=== PATIENT | male | born 2000 | race Two or more races ===

== ENCOUNTER 2024-09-13 13:13 | Inpatient (IN) | payer OTHER ==
[~2024-09-13] VITALS: Ht 167.6 cm; Wt 79.4 kg
[~2024-09-13 13:13] MED LIST: ACYCLOVIR IV 500 MG in IV DEXTROSE 5% 100 ML IV SCH
[2024-09-13] MEDS ORDERED: LORAZEPAM 2 MG/1 ML VIAL ONE (13:17)
[2024-09-13] MEDS ORDERED: diphenhydrAMINE 50 MG/1 ML VIAL ONE (13:34)
[2024-09-13] MEDS ORDERED: HALOPERIDOL LACTATE 5 MG/1 ML VIAL ONE (13:34)
[2024-09-13 13:35] LABS: BASOPHILS # (AUTO) 0.1 K/UL (0.0-0.2); BASOPHILS % (AUTO) 0.3 % (0.0-2.0); EOSINOPHILS # (AUTO) 0.8 K/uL (0.0-0.7); EOSINOPHILS % (AUTO) 3.2 % (0.0-7.0); HEMATOCRIT 59.4 % (36.7-47.1); HEMOGLOBIN 18.7 g/dL (12.5-16.3); LYMPHOCYTES # (AUTO) 7.6 K/uL (0.8-4.8); MEAN CORPUSCULAR HEMOGLOBIN 31.3 uug (23.8-33.4); MEAN CORPUSCULAR HGB CONC 31 g/dL (32.5-36.3); MEAN CORPUSCULAR VOLUME 99.9 fL (73.0-96.2); MONOCYTES % (AUTO) 7.8 % (0.0-11.0); NEUTROPHILS # (AUTO) 14.9 K/uL (1.8-8.9); NEUTROPHILS % (AUTO) 58.7 % (38.5-71.5); PLATELET COUNT (AUTO) 453 K/uL (152-348); RED BLOOD CELL COUNT(AUTO) 5.95 MIL/uL (4.06-5.63); RED CELL DISTRIBUTION WIDTH 14.2 % (12.1-16.2); WHITE BLOOD COUNT (AUTO) 25.4 K/uL (3.6-10.2)
[2024-09-13 13:38] LABS: DIFFERENTIAL COMMENT 1
[2024-09-13] MEDS: LORAZEPAM 2 MG/1 ML VIAL IM ONE (13:43)
[2024-09-13 13:46] LABS: CALCIUM 10.7 mg/dL (8.5-10.1); CARBON DIOXIDE 12 mmol/L (21-32); CHLORIDE 108 mmol/L (98-107); CREATININE 1.3 mg/dL (0.6-1.3); GLUCOSE 174 mg/dL (74-106); POTASSIUM 5.3 mmol/L (3.5-5.1); SODIUM SERUM 150 mmol/L (136-145); UREA NITROGEN, BLOOD 12 mg/dL (7-18)
[2024-09-13] MEDS: diphenhydrAMINE 50 MG/1 ML VIAL IV ONE (13:48)
[2024-09-13] MEDS: HALOPERIDOL LACTATE 5 MG/1 ML VIAL IV ONE (13:48)
[2024-09-13 13:51] LABS: ETHANOL < 3 MG/DL (0-10)
[2024-09-13 13:56] LABS: ACETAMINOPHEN < 2.0 ug/mL (10-30); ALANINE AMINOTRANSFERASE 71 U/L (16-63); ALBUMIN 4.8 g/dL (3.4-5.0); ALKALINE PHOSPHATASE 97 U/L (50-136); ASPARTATE AMINOTRANSFERASE 43 U/L (15-37); BILIRUBIN,DIRECT 0.1 mg/dL (0.0-0.2); BILIRUBIN,TOTAL 0.4 mg/dL (0.2-1.0); TOTAL PROTEIN, SERUM 9.6 g/dL (6.4-8.2)
[2024-09-13 14:25] LABS: AMMONIA 291 umol/L (11-32)
[2024-09-13] MEDS ORDERED: CEFTRIAXONE /D5W 50ML IVPB **ER PYXIS IV ONE (14:35)
[2024-09-13 14:42] LABS: *BILIRUBIN,URIN NEGATIVE (NEGATIVE); *BLOOD, URINE 3+ (NEGATIVE); *CLARITY,URINE CLEAR (CLEAR); *COLOR,URINE YELLOW (YELLOW); *KETONES,URINE NEGATIVE (NEGATIVE); *PROTEIN,URINE 2+ (NEGATIVE); *UROBILINOGEN,URINE 0.2 E.U./dl (NORMAL); LEUKOCYTE ESTERASE ,URINE NEGATIVE (NEGATIVE); NITRITE, URINE NEGATIVE (NEGATIVE); UGLUCOSE NEGATIVE (NEGATIVE)
[2024-09-13] MEDS: CEFTRIAXONE 2 G in IV DEXTROSE 5% 100 ML IV ONE (14:49)
[2024-09-13] MEDS: IV NORMAL SALINE 1000 ML BAG IV ONE ×2 (14:49→19:07)
[2024-09-13 14:56] LABS: *AMPHETAMINE, URINE NEGATIVE (NEGATIVE); *BARBITURATE, URINE NEGATIVE (NEGATIVE); *BENZODIAZEPINE, URINE NEGATIVE (NEGATIVE); *CANNABINOID, URINE POSITIVE (NEGATIVE); *COCCAINE, URINE NEGATIVE (NEGATIVE); *OPIATE, URINE NEGATIVE (NEGATIVE); *PHENCYCLIDINE SCREEN,URINE NEGATIVE (NEGATIVE); FENTANYL, URINE NEGATIVE (NEGATIVE)
[2024-09-13 15:06] LABS: BACTERIA,URINE FEW /HPF (NONE SEEN); WBC,URINE 0-3 /HPF (0-3)
[2024-09-13 15:07] LABS: SQUAMOUS EPITHELIAL CELL,UR FEW /HPF (NONE SEEN)
[2024-09-13 15:13] LABS: LACTIC ACID 8.8 mmol/L (0.4-2.0)
[2024-09-13 16:08] LABS: ABG BASE EXCESS -8.5 mmol/L (-2.0-3.0); ABG PH 7.233 (7.350-7.450); ABG PO2 < 40.5 mmHg (83.0-108.0); ABG SITE UVL; ABG TOTAL HEMOGLOBIN 16.1 G/dL (13.5-17.5); AaDO2 39.3 mmHg; COHb 0.8 % (0.5-1.5); MetHb 0.3 % (0.0-1.5); O2Hb 42.4 % (94.0-98.0)
[2024-09-13] MEDS ORDERED: ACYCLOVIR 500 MG VIAL IV ONE (18:54)
[2024-09-13] MEDS: ACYCLOVIR IV 500 MG in IV DEXTROSE 5% 100 ML IV SCH (19:07)
[2024-09-13 20:02] LABS: CSF GLUCOSE 92 mg/dL (40-70); CSF PROTEIN 40 mg/dL (15-45)
[2024-09-13 20:16] LABS: CSF APPEARANCE CLEAR (CLEAR); CSF COLOR COLORLESS (COLORLESS); CSF WHITE BLOOD CELL COUNT 0.55 /cumm (0-5)
[2024-09-13 21:21] VITALS: BP 128/65; TEMP 100; O2SAT 94
[2024-09-13] MEDS ORDERED: ONDANSETRON 4 MG/2 ML VIAL IV PRN (21:45)
[2024-09-13] MEDS ORDERED: ENOXAPARIN SODIUM 40 MG/0.4 ML DISP.SYRIN SQ SCH (21:45)
[2024-09-13 22:05] LABS: CALCIUM 8.2 mg/dL (8.5-10.1); CREATININE 1.3 mg/dL (0.6-1.3); POTASSIUM 4.2 mmol/L (3.5-5.1)
[2024-09-13] MEDS: ENOXAPARIN SODIUM 40 MG/0.4 ML DISP.SYRIN SQ SCH (22:13)
[2024-09-13] MEDS: IV NS 1000 ML 1,000 ML IV PRN (22:18)
[2024-09-14] VITALS: BP 110/65; TEMP 99.3; O2SAT 94
[2024-09-14] MEDS: LORAZEPAM 0.5 MG TABLET PO ONE (01:27)
[2024-09-14] MEDS ORDERED: ACYCLOVIR 500 MG VIAL IV ONE (02:44)
[2024-09-14] MEDS: ACYCLOVIR IV 500 MG in IV DEXTROSE 5% 100 ML IV SCH (03:23)
[2024-09-14 04:00] VITALS: BP 108/67; TEMP 98; O2SAT 96
[2024-09-14 06:50] LABS: BASOPHILS % (AUTO) 0.1 % (0.0-2.0); EOSINOPHILS # (AUTO) 0.1 K/uL (0.0-0.7); EOSINOPHILS % (AUTO) 0.4 % (0.0-7.0); HEMATOCRIT 42.1 % (36.7-47.1); HEMOGLOBIN 14.2 g/dL (12.5-16.3); LYMPHOCYTES % (AUTO) 20.4 % (20.5-51.5); MEAN CORPUSCULAR HEMOGLOBIN 31.7 uug (23.8-33.4); MEAN CORPUSCULAR HGB CONC 34 g/dL (32.5-36.3); MEAN CORPUSCULAR VOLUME 93.9 fL (73.0-96.2); MONOCYTES # (AUTO) 1.2 K/uL (0.1-1.30); MONOCYTES % (AUTO) 8.4 % (0.0-11.0); NEUTROPHILS # (AUTO) 10.3 K/uL (1.8-8.9); NEUTROPHILS % (AUTO) 70.7 % (38.5-71.5); PLATELET COUNT (AUTO) 303 K/uL (152-348); RED BLOOD CELL COUNT(AUTO) 4.48 MIL/uL (4.06-5.63); RED CELL DISTRIBUTION WIDTH 13.6 % (12.1-16.2); WHITE BLOOD COUNT (AUTO) 14.6 K/uL (3.6-10.2)
[2024-09-14 07:13] LABS: DIFFERENTIAL COMMENT 1
[2024-09-14 07:30] LABS: CREATININE 1.3 mg/dL (0.6-1.3); MAGNESIUM 2.1 mg/dL (1.8-2.4); PHOSPHOROUS 3.2 mg/dL (2.5-4.9); POTASSIUM 3.5 mmol/L (3.5-5.1)
[2024-09-14 07:40] VITALS: BP 129/74; TEMP 98.3; O2SAT 98
[2024-09-14] MEDS: CEFTRIAXONE 2 G in IV DEXTROSE 5% 100 ML IV SCH (08:42)
[2024-09-14] MEDS ORDERED: CEFTRIAXONE 2 G in IV DEXTROSE 5% 100 ML IV SCH ×2 (09:00→15:00)
[2024-09-14] MEDS ORDERED: CEFTRIAXONE 2 G VIAL IM SCH (09:00)
[2024-09-14] MEDS ORDERED: ERGO500040 PO (09:53)
[2024-09-14] MEDS: ACYCLOVIR IV SCH (10:47)
[2024-09-14] MEDS: DEXTROSE 5% IV SCH (10:47)
[2024-09-14] MEDS ORDERED: ACYCLOVIR IV 500 MG in IV DEXTROSE 5% 100 ML IV SCH (11:00)
[2024-09-14 11:43] VITALS: BP 142/70; TEMP 97.7; O2SAT 96
[2024-09-14] MEDS ORDERED: levETIRAcetam 500 MG/5 ML LIQUID UDC NG SCH (12:30)
[2024-09-14] MEDS: levETIRAcetam 500 MG TABLET PO ONE (12:54)
[2024-09-14 13:31] LABS: THYROID STIMULATING HORMONE 1.562 mIU/mL (0.358-3.740)
[2024-09-14] MEDS: ERGOCALCIFEROL 50,000 UNIT CAPSULE PO SCH (13:47)
[2024-09-14 15:59] VITALS: BP 122/68; TEMP 98.2; O2SAT 97
[2024-09-14 18:38] LABS: *BILIRUBIN,URIN NEGATIVE (NEGATIVE); *BLOOD, URINE NEGATIVE (NEGATIVE); *CLARITY,URINE CLEAR (CLEAR); *COLOR,URINE YELLOW (YELLOW); *KETONES,URINE NEGATIVE (NEGATIVE); *PROTEIN,URINE NEGATIVE (NEGATIVE); *UROBILINOGEN,URINE 0.2 E.U./dl (NORMAL); LEUKOCYTE ESTERASE ,URINE NEGATIVE (NEGATIVE); NITRITE, URINE NEGATIVE (NEGATIVE); UGLUCOSE NEGATIVE (NEGATIVE)
[2024-09-14 18:42] LABS: *CREATININE,URINE 34.3 mg/dL (30-125); *SODIUM RNDM,URINE 71 mmol/L (40-220); *URINE TOTAL PROTEIN RANDOM < 6.0 mg/dL (<150/24HR)
[2024-09-14 19:00] VITALS: BP 134/87; TEMP 99.1; O2SAT 96
[2024-09-14] MEDS: levETIRAcetam 500 MG TABLET PO SCH (21:01)
[2024-09-14] MEDS: ACETAMINOPHEN 325 MG TABLET PO PRN (21:01)
[2024-09-15] VITALS: BP 116/66; TEMP 97.6; O2SAT 95
[2024-09-15 06:00] VITALS: BP 134/72; TEMP 97.8; O2SAT 93
[2024-09-15 07:03] LABS: BASOPHILS % (AUTO) 0.5 % (0.0-2.0); EOSINOPHILS # (AUTO) 0.1 K/uL (0.0-0.7); EOSINOPHILS % (AUTO) 1.5 % (0.0-7.0); HEMATOCRIT 42.6 % (36.7-47.1); HEMOGLOBIN 14.4 g/dL (12.5-16.3); LYMPHOCYTES # (AUTO) 3.4 K/uL (0.8-4.8); LYMPHOCYTES % (AUTO) 35.7 % (20.5-51.5); MEAN CORPUSCULAR HEMOGLOBIN 31.4 uug (23.8-33.4); MEAN CORPUSCULAR HGB CONC 34 g/dL (32.5-36.3); MEAN CORPUSCULAR VOLUME 93.2 fL (73.0-96.2); MONOCYTES # (AUTO) 0.8 K/uL (0.1-1.30); MONOCYTES % (AUTO) 8.9 % (0.0-11.0); NEUTROPHILS # (AUTO) 5.1 K/uL (1.8-8.9); NEUTROPHILS % (AUTO) 53.4 % (38.5-71.5); PLATELET COUNT (AUTO) 319 K/uL (152-348); RED BLOOD CELL COUNT(AUTO) 4.58 MIL/uL (4.06-5.63); RED CELL DISTRIBUTION WIDTH 13.4 % (12.1-16.2); WHITE BLOOD COUNT (AUTO) 9.5 K/uL (3.6-10.2)
[2024-09-15 07:07] LABS: DIFFERENTIAL COMMENT 1
[2024-09-15 07:34] VITALS: BP 144/65; TEMP 98.2; O2SAT 94
[2024-09-15 07:35] LABS: CALCIUM 8.8 mg/dL (8.5-10.1); MAGNESIUM 1.9 mg/dL (1.8-2.4); PHOSPHOROUS 2.9 mg/dL (2.5-4.9); POTASSIUM 3.7 mmol/L (3.5-5.1)
[2024-09-15 11:05] VITALS: BP 144/83; TEMP 98.6; O2SAT 94
[2024-09-15 15:03] VITALS: BP 152/98; TEMP 98.2; O2SAT 94
[2024-09-15 19:00] VITALS: BP 135/70; TEMP 99.2; O2SAT 97
[2024-09-15 22:08] LABS: *HSV 1/2 PCR 1DNA CSF Negative (Negative); *HSV 1/2 PCR 2DNA CSF Negative (Negative)
[2024-09-16] VITALS: BP 141/72; TEMP 97.8; O2SAT 96
[2024-09-16 04:00] VITALS: BP 104/59; TEMP 97.7; O2SAT 95
[2024-09-16 07:35] VITALS: BP 128/71; TEMP 98; O2SAT 94
[2024-09-16 07:52] LABS: BASOPHILS # (AUTO) 0.1 K/UL (0.0-0.2); BASOPHILS % (AUTO) 0.6 % (0.0-2.0); EOSINOPHILS # (AUTO) 0.1 K/uL (0.0-0.7); EOSINOPHILS % (AUTO) 1.2 % (0.0-7.0); HEMATOCRIT 42.1 % (36.7-47.1); HEMOGLOBIN 14.5 g/dL (12.5-16.3); LYMPHOCYTES # (AUTO) 3.6 K/uL (0.8-4.8); MEAN CORPUSCULAR HEMOGLOBIN 32.2 uug (23.8-33.4); MEAN CORPUSCULAR HGB CONC 34 g/dL (32.5-36.3); MEAN CORPUSCULAR VOLUME 93.5 fL (73.0-96.2); MONOCYTES % (AUTO) 9.6 % (0.0-11.0); NEUTROPHILS # (AUTO) 5.6 K/uL (1.8-8.9); NEUTROPHILS % (AUTO) 53.6 % (38.5-71.5); PLATELET COUNT (AUTO) 335 K/uL (152-348); RED CELL DISTRIBUTION WIDTH 13.2 % (12.1-16.2); WHITE BLOOD COUNT (AUTO) 10.3 K/uL (3.6-10.2)
[2024-09-16 07:59] LABS: DIFFERENTIAL COMMENT 1
[2024-09-16 08:15] LABS: ALBUMIN 3.6 g/dL (3.4-5.0); BILIRUBIN,TOTAL 0.4 mg/dL (0.2-1.0); CALCIUM 9.2 mg/dL (8.5-10.1); PHOSPHOROUS 3.5 mg/dL (2.5-4.9); POTASSIUM 3.7 mmol/L (3.5-5.1); TOTAL PROTEIN, SERUM 7.1 g/dL (6.4-8.2)
[2024-09-16 11:43] VITALS: BP 128/94; TEMP 98.6; O2SAT 94
[2024-09-16 13:07] LABS: CRYPTOCOCCUS AG CSF Negative (Negative)
[2024-09-16 16:34] VITALS: BP 139/96; TEMP 98.5; O2SAT 96
[2024-09-16 19:37] VITALS: BP 147/85; TEMP 99.1; O2SAT 96
[2024-09-17 05:27] VITALS: BP 127/85; TEMP 97.8; O2SAT 97
[2024-09-17 07:28] LABS: HIV-1 p24 ANTIGEN NON REACTIVE (NONREACTIVE); HIV-1/2 ANTIBODY NON REACTIVE (NONREACTIVE)
[2024-09-17 11:53] VITALS: BP 141/86; TEMP 98.5; O2SAT 97
[2024-09-17 15:41] VITALS: BP 128/91; TEMP 98.1; O2SAT 96
[2024-09-17 20:05] VITALS: BP 146/96; TEMP 97.9; O2SAT 95
[2024-09-18 05:32] VITALS: BP 126/85; TEMP 97.6; O2SAT 97
[2024-09-18 06:10] LABS: HEPATITIS B CORE AB, TOTAL Negative (Negative); HEPATITIS B SURFACE AG Negative (Negative); HEPATITIS C VIRUS ANTIBODY Non Reactive (Non Reactive)
[2024-09-18 06:52] LABS: BASOPHILS % (AUTO) 0.7 % (0.0-2.0); EOSINOPHILS # (AUTO) 0.3 K/uL (0.0-0.7); EOSINOPHILS % (AUTO) 4.2 % (0.0-7.0); HEMATOCRIT 45.3 % (36.7-47.1); HEMOGLOBIN 15.6 g/dL (12.5-16.3); LYMPHOCYTES # (AUTO) 2.5 K/uL (0.8-4.8); LYMPHOCYTES % (AUTO) 35.8 % (20.5-51.5); MEAN CORPUSCULAR HGB CONC 34 g/dL (32.5-36.3); MONOCYTES # (AUTO) 0.7 K/uL (0.1-1.30); MONOCYTES % (AUTO) 9.8 % (0.0-11.0); NEUTROPHILS # (AUTO) 3.4 K/uL (1.8-8.9); NEUTROPHILS % (AUTO) 49.5 % (38.5-71.5); PLATELET COUNT (AUTO) 369 K/uL (152-348); RED BLOOD CELL COUNT(AUTO) 4.88 MIL/uL (4.06-5.63); RED CELL DISTRIBUTION WIDTH 12.9 % (12.1-16.2); WHITE BLOOD COUNT (AUTO) 6.9 K/uL (3.6-10.2)
[2024-09-18 07:09] LABS: ALBUMIN 3.6 g/dL (3.4-5.0); BILIRUBIN,TOTAL 0.5 mg/dL (0.2-1.0); CALCIUM 9.1 mg/dL (8.5-10.1); PHOSPHOROUS 4.1 mg/dL (2.5-4.9); POTASSIUM 3.9 mmol/L (3.5-5.1); TOTAL PROTEIN, SERUM 7.3 g/dL (6.4-8.2)
[2024-09-18 07:15] LABS: DIFFERENTIAL COMMENT 1
[2024-09-18 08:00] VITALS: BP 140/97; TEMP 98; O2SAT 98
[2024-09-18] MEDS: IV 1/2NS 1000 ML 1,000 ML IV PRN (08:42)
[2024-09-18 12:00] VITALS: BP 129/90; TEMP 98; O2SAT 97
[2024-09-18 16:00] VITALS: BP 129/85; TEMP 98.5; O2SAT 98
[2024-09-18] MEDS ORDERED: LEVE500T9 PO (17:01)
== END 2024-09-18 19:45 | disposition home or self-care (01) | DRG 871 ==
LOC: ER 13:14 → TELE3 20:22 → MEDSURG3 09-16 10:07
PROVIDERS: ADMIT Nurse Practitioner Acute Care; ATTEND Nurse Practitioner Acute Care
PROC: 009U3ZX Drainage of Spinal Canal, Percutaneous Approach, Diagnostic (ICD-10-PCS; principal; 2024-09-13)
DX: A41.9 Sepsis, unspecified organism (principal); G92.8 Other toxic encephalopathy; J96.01 Acute respiratory failure with hypoxia; E87.0 Hyperosmolality and hypernatremia; E87.21 Acute metabolic acidosis; M62.82 Rhabdomyolysis; E72.20 Disorder of urea cycle metabolism, unspecified; E87.20 Acidosis, unspecified; E86.0 Dehydration; E66.9 Obesity, unspecified; Z68.28 Body mass index [BMI] 28.0-28.9, adult; K76.0 Fatty (change of) liver, not elsewhere classified; E87.5 Hyperkalemia; F41.9 Anxiety disorder, unspecified; F12.90 Cannabis use, unspecified, uncomplicated; D75.1 Secondary polycythemia; E53.8 Deficiency of other specified B group vitamins; M54.2 Cervicalgia; H53.2 Diplopia; Z78.1 Physical restraint status; S01.21XA Laceration without foreign body of nose, initial encounter; X58.XXXA Exposure to other specified factors, initial encounter; Y93.E1 Activity, personal bathing and showering; Y92.012 Bathroom of single-family (private) house as the place of occurrence of the external cause; E83.52 Hypercalcemia
CPT/HCPCS: 36415; 36600; 70450; 71045; 72125; 76770; 82803; 83605; 83735; 83921; 84100; 84157; 84300; 84443; 84484; 85025; 85730; 86480; 86704; 86803; 87040; 87340; 87806; 89051; C1758; G0378; G0480; J0133; J0696; J1200; J1630; J1650; J2060; J7040; J7050

== ENCOUNTER 2024-11-02 10:49 | Emergency (ER) | payer OTHER ==
[~2024-11-02] VITALS: Ht 165.1 cm; Wt 77.1 kg
[~2024-11-02 10:49] MED LIST changes: -ACYCLOVIR IV 500 MG in IV DEXTROSE 5% 100 ML IV SCH; +LEVE500T9 PO
[2024-11-02] MEDS ORDERED: CALC-895 PO (11:14)
[2024-11-02] MEDS ORDERED: GEMF600T90 PO (11:14)
[2024-11-02 11:18] LABS: BASOPHILS % (AUTO) 0.5 % (0.0-2.0); EOSINOPHILS # (AUTO) 0.1 K/uL (0.0-0.7); EOSINOPHILS % (AUTO) 1.5 % (0.0-7.0); HEMATOCRIT 44.2 % (36.7-47.1); HEMOGLOBIN 15.3 g/dL (12.5-16.3); LYMPHOCYTES # (AUTO) 2.8 K/uL (0.8-4.8); LYMPHOCYTES % (AUTO) 37.2 % (20.5-51.5); MEAN CORPUSCULAR HEMOGLOBIN 31.9 uug (23.8-33.4); MEAN CORPUSCULAR HGB CONC 35 g/dL (32.5-36.3); MEAN CORPUSCULAR VOLUME 91.9 fL (73.0-96.2); MONOCYTES # (AUTO) 0.6 K/uL (0.1-1.30); MONOCYTES % (AUTO) 8.3 % (0.0-11.0); NEUTROPHILS % (AUTO) 52.5 % (38.5-71.5); PLATELET COUNT (AUTO) 370 K/uL (152-348); RED CELL DISTRIBUTION WIDTH 13.2 % (12.1-16.2); WHITE BLOOD COUNT (AUTO) 7.7 K/uL (3.6-10.2)
[2024-11-02 11:20] LABS: DIFFERENTIAL COMMENT 1
[2024-11-02 11:31] LABS: ETHANOL < 3 MG/DL (0-10)
[2024-11-02 11:35] LABS: *AMPHETAMINE, URINE NEGATIVE (NEGATIVE); *BARBITURATE, URINE NEGATIVE (NEGATIVE); *BENZODIAZEPINE, URINE NEGATIVE (NEGATIVE); *CANNABINOID, URINE POSITIVE (NEGATIVE); *COCCAINE, URINE NEGATIVE (NEGATIVE); *OPIATE, URINE NEGATIVE (NEGATIVE); *PHENCYCLIDINE SCREEN,URINE NEGATIVE (NEGATIVE); FENTANYL, URINE NEGATIVE (NEGATIVE)
[2024-11-02 11:40] LABS: ALANINE AMINOTRANSFERASE 47 U/L (16-63); ALBUMIN 4.3 g/dL (3.4-5.0); ALKALINE PHOSPHATASE 79 U/L (50-136); ASPARTATE AMINOTRANSFERASE 18 U/L (15-37); BILIRUBIN,DIRECT 0.1 mg/dL (0.0-0.2); BILIRUBIN,TOTAL 0.4 mg/dL (0.2-1.0); CALCIUM 9.5 mg/dL (8.5-10.1); CARBON DIOXIDE 28 mmol/L (21-32); CHLORIDE 103 mmol/L (98-107); CREATININE 1.1 mg/dL (0.6-1.3); GLUCOSE 111 mg/dL (74-106); POTASSIUM 3.7 mmol/L (3.5-5.1); SODIUM SERUM 143 mmol/L (136-145); TOTAL PROTEIN, SERUM 8.1 g/dL (6.4-8.2); UREA NITROGEN, BLOOD 12 mg/dL (7-18)
[2024-11-02 11:43] LABS: *BILIRUBIN,URIN NEGATIVE (NEGATIVE); *BLOOD, URINE TRACE (NEGATIVE); *CLARITY,URINE CLEAR (CLEAR); *COLOR,URINE YELLOW (YELLOW); *KETONES,URINE NEGATIVE (NEGATIVE); *PROTEIN,URINE NEGATIVE (NEGATIVE); *UROBILINOGEN,URINE 0.2 E.U./dl (NORMAL); LEUKOCYTE ESTERASE ,URINE NEGATIVE (NEGATIVE); NITRITE, URINE NEGATIVE (NEGATIVE); UGLUCOSE NEGATIVE (NEGATIVE)
[2024-11-02 11:44] LABS: ACETAMINOPHEN < 10.0 ug/mL (10-30); NT-PRO BNP 7 pg/mL (0-125)
[2024-11-02 11:44] LABS: BACTERIA,URINE FEW /HPF (NONE SEEN); WBC,URINE 0-3 /HPF (0-3)
[2024-11-02 12:12] VITALS: BP 132/84; O2SAT 98
[2024-11-03] MEDS ORDERED: ERGO500040 PO (12:36)
== END 2024-11-02 12:13 | disposition home or self-care (01) ==
LOC: ER 10:49
DX: R00.2 Palpitations (principal); E78.5 Hyperlipidemia, unspecified
CPT/HCPCS: 36415; 84484; 85025; 85730; A4606; A4663; G0480

== ENCOUNTER 2024-11-02 13:36 | Inpatient (IN) | payer OTHER ==
[~2024-11-02] VITALS: Ht 165.1 cm; Wt 72.6 kg
[~2024-11-02 13:36] MED LIST changes: +CALC-895 PO; +GEMF600T90 PO
[2024-11-02 14:13] LABS: BASOPHILS % (AUTO) 0.3 % (0.0-2.0); EOSINOPHILS # (AUTO) 0.1 K/uL (0.0-0.7); EOSINOPHILS % (AUTO) 0.9 % (0.0-7.0); HEMATOCRIT 45.7 % (36.7-47.1); HEMOGLOBIN 15.7 g/dL (12.5-16.3); LYMPHOCYTES # (AUTO) 2.4 K/uL (0.8-4.8); LYMPHOCYTES % (AUTO) 25.4 % (20.5-51.5); MEAN CORPUSCULAR HEMOGLOBIN 31.8 uug (23.8-33.4); MEAN CORPUSCULAR HGB CONC 34 g/dL (32.5-36.3); MEAN CORPUSCULAR VOLUME 92.4 fL (73.0-96.2); MONOCYTES # (AUTO) 0.5 K/uL (0.1-1.30); MONOCYTES % (AUTO) 5.3 % (0.0-11.0); NEUTROPHILS # (AUTO) 6.4 K/uL (1.8-8.9); NEUTROPHILS % (AUTO) 68.1 % (38.5-71.5); PLATELET COUNT (AUTO) 368 K/uL (152-348); RED BLOOD CELL COUNT(AUTO) 4.94 MIL/uL (4.06-5.63); WHITE BLOOD COUNT (AUTO) 9.4 K/uL (3.6-10.2)
[2024-11-02 14:20] LABS: DIFFERENTIAL COMMENT 1
[2024-11-02 14:24] LABS: AMMONIA 39 umol/L (11-32)
[2024-11-02 14:34] LABS: CALCIUM 10.1 mg/dL (8.5-10.1); CARBON DIOXIDE 24 mmol/L (21-32); CHLORIDE 104 mmol/L (98-107); CREATININE 1.2 mg/dL (0.6-1.3); GLUCOSE 105 mg/dL (74-106); POTASSIUM 3.9 mmol/L (3.5-5.1); SODIUM SERUM 143 mmol/L (136-145); UREA NITROGEN, BLOOD 11 mg/dL (7-18)
[2024-11-02 14:36] LABS: ETHANOL < 3 MG/DL (0-10)
[2024-11-02 14:38] LABS: ACETAMINOPHEN < 10.0 ug/mL (10-30); ALANINE AMINOTRANSFERASE 47 U/L (16-63); ALBUMIN 4.1 g/dL (3.4-5.0); ALKALINE PHOSPHATASE 70 U/L (50-136); ASPARTATE AMINOTRANSFERASE 26 U/L (15-37); BILIRUBIN,DIRECT 0.1 mg/dL (0.0-0.2); BILIRUBIN,TOTAL 0.3 mg/dL (0.2-1.0); TOTAL PROTEIN, SERUM 8.1 g/dL (6.4-8.2)
[2024-11-02] MEDS ORDERED: DEXAMETHASONE SOD PHOSPHATE 10 MG INJ ONE (14:57)
[2024-11-02] MEDS ORDERED: levETIRAcetam 500 MG/5 ML VIAL IV ONE ×2 (14:58→22:37)
[2024-11-02] MEDS: levETIRAcetam IV 1,000 MG in IV DEXTROSE 5% 100 ML IV ONE (15:11)
[2024-11-02] MEDS: DEXAMETHASONE SOD PHOSPHATE 4 MG INJ IV ONE (15:11)
[2024-11-02] MEDS ORDERED: MAGNESIUM HYDROXIDE 30 ML LIQUID UDC PO PRN (16:00)
[2024-11-02] MEDS ORDERED: REMEDY ESSENTIAL ZINC PASTE 113 GM TP PRN (16:00)
[2024-11-02] MEDS ORDERED: ONDANSETRON 4 MG/2 ML VIAL IV PRN (16:00)
[2024-11-02] MEDS ORDERED: ACETAMINOPHEN 325 MG TABLET PO PRN (16:00)
[2024-11-02] MEDS ORDERED: MORPHINE SULFATE 4 MG/1 ML DISP.SYRIN ONE (17:22)
[2024-11-02] MEDS: ONDANSETRON 4 MG/2 ML VIAL IV ONE (17:29)
[2024-11-02] MEDS: MORPHINE SULFATE 4 MG/1 ML DISP.SYRIN IV ONE (17:29)
[2024-11-02 18:00] LABS: *AMPHETAMINE, URINE NEGATIVE (NEGATIVE); *BARBITURATE, URINE NEGATIVE (NEGATIVE); *BENZODIAZEPINE, URINE NEGATIVE (NEGATIVE); *CANNABINOID, URINE POSITIVE (NEGATIVE); *COCCAINE, URINE NEGATIVE (NEGATIVE); *OPIATE, URINE NEGATIVE (NEGATIVE); *PHENCYCLIDINE SCREEN,URINE NEGATIVE (NEGATIVE); FENTANYL, URINE NEGATIVE (NEGATIVE)
[2024-11-02 18:01] LABS: *BILIRUBIN,URIN NEGATIVE (NEGATIVE); *CLARITY,URINE CLEAR (CLEAR); *COLOR,URINE YELLOW (YELLOW); *KETONES,URINE NEGATIVE (NEGATIVE); *PROTEIN,URINE 1+ (NEGATIVE); *UROBILINOGEN,URINE 0.2 E.U./dl (NORMAL); LEUKOCYTE ESTERASE ,URINE NEGATIVE (NEGATIVE); NITRITE, URINE NEGATIVE (NEGATIVE); UGLUCOSE NEGATIVE (NEGATIVE)
[2024-11-02 18:03] LABS: *BLOOD, URINE NEGATIVE (NEGATIVE); RBC,URINE 0-3 /HPF (0-3); WBC,URINE 0-3 /HPF (0-3)
[2024-11-02 19:40] VITALS: BP 135/77; TEMP 98.5; O2SAT 97
[2024-11-02] MEDS: levETIRAcetam IV 1,000 MG in IV DEXTROSE 5% 100 ML IV SCH (23:01)
[2024-11-03 00:20] VITALS: BP 116/70; TEMP 98.1; O2SAT 97
[2024-11-03 04:30] VITALS: BP 133/81; TEMP 98; O2SAT 96
[2024-11-03 07:22] LABS: HEMATOCRIT 44.8 % (36.7-47.1); HEMOGLOBIN 15.4 g/dL (12.5-16.3); LYMPHOCYTES # (AUTO) 1.5 K/uL (0.8-4.8); LYMPHOCYTES % (AUTO) 10.5 % (20.5-51.5); MEAN CORPUSCULAR HEMOGLOBIN 31.7 uug (23.8-33.4); MEAN CORPUSCULAR HGB CONC 34 g/dL (32.5-36.3); MEAN CORPUSCULAR VOLUME 92.2 fL (73.0-96.2); MONOCYTES # (AUTO) 0.6 K/uL (0.1-1.30); MONOCYTES % (AUTO) 3.9 % (0.0-11.0); NEUTROPHILS # (AUTO) 12.6 K/uL (1.8-8.9); NEUTROPHILS % (AUTO) 85.6 % (38.5-71.5); PLATELET COUNT (AUTO) 389 K/uL (152-348); RED BLOOD CELL COUNT(AUTO) 4.86 MIL/uL (4.06-5.63); RED CELL DISTRIBUTION WIDTH 13.4 % (12.1-16.2); WHITE BLOOD COUNT (AUTO) 14.7 K/uL (3.6-10.2)
[2024-11-03 07:42] VITALS: BP 106/68; TEMP 98.1; O2SAT 97
[2024-11-03 07:51] LABS: CALCIUM 9.2 mg/dL (8.5-10.1); CREATININE 1.1 mg/dL (0.6-1.3); MAGNESIUM 2.1 mg/dL (1.8-2.4); PHOSPHOROUS 3.9 mg/dL (2.5-4.9)
[2024-11-03 08:28] LABS: DIFFERENTIAL COMMENT 1
[2024-11-03] MEDS: CALCIUM CARB/VITAMIN D 600-400 MG TABLET PO SCH (09:00)
[2024-11-03] MEDS: GEMFIBROZIL 600 MG TABLET PO SCH (09:00)
[2024-11-03 11:07] VITALS: BP 129/72; TEMP 98.4; O2SAT 96
[2024-11-03] MEDS ORDERED: ERGO500040 PO (12:36)
[2024-11-03 15:35] VITALS: BP 142/83; TEMP 98.4; O2SAT 95
[2024-11-03 20:34] VITALS: BP 120/73; TEMP 98.1; O2SAT 97
[2024-11-03] MEDS: levETIRAcetam 500 MG TABLET PO SCH (21:03)
[2024-11-04] VITALS: BP 103/70; TEMP 97.4; O2SAT 95
[2024-11-04 04:11] VITALS: BP 111/71; TEMP 97.5; O2SAT 95
[2024-11-04 06:58] LABS: BASOPHILS % (AUTO) 0.1 % (0.0-2.0); EOSINOPHILS % (AUTO) 0.1 % (0.0-7.0); HEMATOCRIT 44.2 % (36.7-47.1); HEMOGLOBIN 15.2 g/dL (12.5-16.3); LYMPHOCYTES # (AUTO) 4.2 K/uL (0.8-4.8); LYMPHOCYTES % (AUTO) 42.9 % (20.5-51.5); MEAN CORPUSCULAR HGB CONC 34 g/dL (32.5-36.3); MEAN CORPUSCULAR VOLUME 92.8 fL (73.0-96.2); MONOCYTES # (AUTO) 0.9 K/uL (0.1-1.30); NEUTROPHILS # (AUTO) 4.6 K/uL (1.8-8.9); NEUTROPHILS % (AUTO) 47.9 % (38.5-71.5); PLATELET COUNT (AUTO) 351 K/uL (152-348); RED BLOOD CELL COUNT(AUTO) 4.76 MIL/uL (4.06-5.63); RED CELL DISTRIBUTION WIDTH 13.6 % (12.1-16.2); WHITE BLOOD COUNT (AUTO) 9.7 K/uL (3.6-10.2)
[2024-11-04 07:07] LABS: CALCIUM 8.7 mg/dL (8.5-10.1); CREATININE 1.1 mg/dL (0.6-1.3); MAGNESIUM 2.2 mg/dL (1.8-2.4); POTASSIUM 4.2 mmol/L (3.5-5.1)
[2024-11-04 07:18] LABS: DIFFERENTIAL COMMENT 1
[2024-11-04 07:51] VITALS: BP 117/78; TEMP 98.2; O2SAT 99
[2024-11-04 11:16] VITALS: BP 118/76; TEMP 98.2; O2SAT 97
[2024-11-04] MEDS ORDERED: LEVE1000 PO (13:03)
== END 2024-11-04 14:05 | disposition home or self-care (01) | DRG 101 ==
LOC: ER 13:36 → TELE3 20:18
PROVIDERS: ADMIT Student in an Organized Health Care Education/Training Program; ATTEND Student in an Organized Health Care Education/Training Program
DX: G40.909 Epilepsy, unspecified, not intractable, without status epilepticus (principal); E72.20 Disorder of urea cycle metabolism, unspecified; D75.839 Thrombocytosis, unspecified; K76.0 Fatty (change of) liver, not elsewhere classified; F41.9 Anxiety disorder, unspecified; F12.90 Cannabis use, unspecified, uncomplicated; E78.5 Hyperlipidemia, unspecified; Z79.899 Other long term (current) drug therapy; R00.2 Palpitations; M54.2 Cervicalgia
CPT/HCPCS: 36415; 70450; 71045; 72125; 83735; 84100; 84484; 85025; 85730; 93307; A4606; A4663; G0378; G0480; J1100; J1953; J2270; J2405